=== PATIENT | female | born 1945 | race Caucasian/White ===

== ENCOUNTER 2016-04-16 08:55 | Outpatient (CLI) | payer OTHER | END 2016-04-16 23:00 | LOC: LAB SRH 08:55 | DX: Z01.812 Encounter for preprocedural laboratory examination (principal); E11.9 Type 2 diabetes mellitus without complications; M16.11 Unilateral primary osteoarthritis, right hip; N39.0 Urinary tract infection, site not specified; Z51.81 Encounter for therapeutic drug level monitoring | CPT/HCPCS: 90004; 90047; 90074; 91286; 94060; 95059 ==